=== PATIENT | male | born 1980 | race African-American/Black ===

== ENCOUNTER 2022-11-25 11:09 | Emergency (ER) | payer SELFPAY ==
[~2022-11-25] VITALS: Ht 175.3 cm; Wt 60.0 kg
[2022-11-25 11:19] VITALS: BP 131/76; PULSE 60; RESP 16; TEMP 98.5; O2SAT 98
[2022-11-25 12:42] LABS: BASOPHILS % 1.3 % (0.0-2.0); EOSINOPHILS % 12.6 % (0.0-5.0); HEMATOCRIT. 40.2 % (42.0-52.0); HEMOGLOBIN. 13.5 g/dL (14.0-18.0); LYMPHOCYTES % 27.9 % (20.0-50.0); MEAN CORPUSCULAR HEMOGLOBIN 30.3 pg (28.0-32.0); MEAN CORPUSCULAR HGB CONC 33.6 g/dL (31.0-37.0); MEAN CORPUSCULAR VOLUME 90.3 fL (80.0-94.0); MEAN PLATELET VOLUME 7.4 fl (7.4-10.4); MONOCYTES % 10.6 % (2.0-8.0); NEUTROPHILS % 47.6 % (40.0-76.0); PLATELET 228 x1000/uL (130-400); RED BLOOD CELL COUNT 4.45 mill/uL (4.7-6.1); RED CELL DISTRIBUTION WIDTH 13.5 % (11.6-14.6); WHITE BLOOD COUNT 4.6 x1000/uL (4.5-11.0)
[2022-11-25 12:51] LABS: CHLORIDE 109 mEq/L (98-107); INDEX HEMOLYSI 1 (1-3); INDEX ICTERIC 1 (1-4); INDEX LIPEMIC 1 (1-3); SODIUM 140 mEq/L (136-145)
[2022-11-25 12:59] LABS: ALANINE AMINOTRANSFERASE 32 IU/L (13-61); ALBUMIN 3.8 g/dL (3.4-5.0); ASPARTATE AMINOTRANSFERASE 21 IU/L (15-37); BILIRUBIN TOTAL 1.1 mg/dL (0.1-1.0); CALCIUM 8.8 mg/dL (8.5-10.1); CARBON DIOXIDE 29 mEq/L (21-32); CREATININE 0.7 mg/dL (0.6-1.3); GLUCOSE 110 mg/dL (70-105); PROTEIN TOTAL 7.7 g/dL (6.0-8.3); UREA NITROGEN BLOOD 12 mg/dL (7-21)
[2022-11-25] MEDS ORDERED: MED4 MT (13:32)
[2022-11-25] MEDS ORDERED: AMOX1TAB16 MT (13:32)
[2022-11-25 14:14] LABS: ERYTHROCYTE SEDIMENTATION RATE 2 mm/hr (0-15)
== END 2022-11-25 16:46 | disposition home or self-care (01) ==
LOC: ER 11:09
DX: J32.9 Chronic sinusitis, unspecified (principal); R09.81 Nasal congestion
CPT/HCPCS: 36415; 70486; 80053; 85025; 85651; 99284

== ENCOUNTER 2023-01-30 13:34 | Emergency (ER) | payer SELFPAY ==
[~2023-01-30] VITALS: Ht 180.3 cm; Wt 86.0 kg
[~2023-01-30 13:34] MED LIST: AMOX1TAB16 MT; MED4 MT
[2023-01-30 14:07] VITALS: BP 115/82; PULSE 61; RESP 16; TEMP 98.8; O2SAT 99
[2023-01-30] MEDS ORDERED: PSEU120T56 MT (16:59)
== END 2023-01-30 17:40 | disposition home or self-care (01) ==
LOC: ER 14:11
DX: J32.9 Chronic sinusitis, unspecified (principal)
CPT/HCPCS: 99281; 99282

== ENCOUNTER 2023-03-22 10:10 | Emergency (ER) | payer SELFPAY ==
[~2023-03-22] VITALS: Ht 152.4 cm; Wt 77.2 kg
[~2023-03-22 10:10] MED LIST changes: +PSEU120T56 MT
[2023-03-22 10:45] VITALS: O2SAT 98
[2023-03-22] MEDS ORDERED: FLUT9.9S16 BOTHNSTRLS (11:02)
[2023-03-22 12:14] VITALS: BP 127/82; PULSE 53; RESP 18; TEMP 98.2
== END 2023-03-22 12:15 | disposition home or self-care (01) ==
LOC: ER 10:10
DX: J31.0 Chronic rhinitis (principal); Z98.890 Other specified postprocedural states
CPT/HCPCS: 99282